=== PATIENT | female | born 1985 | race Caucasian/White ===

== ENCOUNTER 2023-02-20 09:43 | Emergency (ER) | payer BC ==
[2023-02-20 09:55] VITALS: BP 134/90; PULSE 70; RESP 18; TEMP 97.9; BMI 22.1
[2023-02-20] MEDS ORDERED: TETRACAINE 0.5% HCL 0.6ML DROPPER.BOTTLE OD ONE (10:30)
[2023-02-20] MEDS ORDERED: TETRACAINE 0.5% OPHTH SOLN 2 ML BOTTLE ONE (10:32)
[2023-02-20] MEDS ORDERED: MECLIZINE HCL 25 MG TABLET (FP) PO ONE (11:04)
[2023-02-20 11:43] LABS: EPI CELLS 25 /uL (0-25.1); HYALINE CASTS 0 /uL (0-3.1); PH,URINE 7.5 (5.0-8.0); URINE APPEARANCE CLOUDY; URINE BACTERIA 403 /uL (0-1359); URINE BILIRUBIN NEGATIVE (NEGATIVE); URINE COLOR YELLOW; URINE GLUCOSE (UA) NEGATIVE (NEGATIVE); URINE KETONE NEGATIVE (NEGATIVE); URINE LEUK ESTERASE 2+ (NEGATIVE); URINE NITRITE NEGATIVE (NEGATIVE); URINE PROTEIN NEGATIVE (NEGATIVE); URINE RBC 3 /uL (0-23.9); URINE UROBILINOGEN 0.2 mg/dL (0.2-1.0); URINE WBC 21 /uL (0-25.8)
[2023-02-20 11:46] LABS: HCG,QUALITATIVE URINE Negative
== END 2023-02-20 11:53 | disposition home or self-care (01) ==
LOC: JERFT 09:43
DX: H57.13 Ocular pain, bilateral (principal); R42 Dizziness and giddiness; H57.89 Other specified disorders of eye and adnexa
CPT/HCPCS: 81003; 84703; 99283-25